=== PATIENT | female | born 1955 | race Caucasian/White ===

== ENCOUNTER 2021-11-23 13:52 | Emergency (ER) | payer MEDICARE ==
[~2021-11-23] VITALS: Ht 157.5 cm; Wt 71.2 kg
[2021-11-23] MEDS ORDERED: ALTOPREV40 MG PO (15:32)
[2021-11-23] MEDS ORDERED: NORVASC5 MG PO (15:32)
== END 2021-11-23 20:09 | disposition home or self-care (01) ==
LOC: ED 13:52
DX: K59.00 Constipation, unspecified (principal); I10 Essential (primary) hypertension; E78.00 Pure hypercholesterolemia, unspecified; Z88.5 Allergy status to narcotic agent; Z79.899 Other long term (current) drug therapy
CPT/HCPCS: 36415; 74177; 80053; 83690; 85025; 99284-25; Q9967